=== PATIENT | female | born 1990 | race African-American/Black ===

== ENCOUNTER 2016-08-08 10:45 | Emergency (ER) | payer BC, OTHER ==
[~2016-08-08] VITALS: Ht 172.7 cm; Wt 172.7 kg
[~2016-08-08 10:45] MED LIST: DICL75TA PO; HYDR-3533 PO; ROBA750T PO; TRAM50 PO; ZOFR4TAB3 SL
[2016-08-08 10:48] VITALS: BP 179/81; PULSE 79; RESP 16; TEMP 98.7; O2SAT 99
[2016-08-08] MEDS ORDERED: ONDANSETRON ODT 4 MG TAB PO ONE (11:15)
--- NOTE | 2016-08-08 11:15 | PD ---
HPI Chief Complaint: Chest Pain Time Seen by Provider: 11:05 Travel History International Travel<30 days: No Contact w/Intl Traveler<30days: No Traveled to known affect area: No History of Present Illness HPI 25-year-old female presents for evaluation of chest tightness. Symptoms started 4 days ago. She describes a tightness in the upper part of her chest when she breathes. She denies any pain. She says that the symptoms come and go. There is no obvious aggravating or alleviating factor. She does endorse a slight cough as well as nausea. She has been feeling anxious over the past week as well. Denies any depression. Denies any congestion, fevers or chills, abdominal pain, flank pain, dysuria, calf swelling, recent travel, recent surgery. Denies any oral contraceptive use. She has no significant past medical history. Denies tobacco use. She has no other complaints at this time. PFSH Past Medical History ?: Not LMP: 07/01/2016 Social History Alcohol Use: Yes Tobacco Use: No Substance Use: No Allergies-Medications (Allergen,Severity, Reaction): Coded Allergies: No Known Allergies (Unverified , 08/08/16) Reported Meds & Prescriptions Reported Meds & Active Scripts Active Review of Systems Except as stated in HPI: all other systems reviewed are Neg Physical Exam Narrative GENERAL: Well-developed well-nourished female in no acute distress. Her vital signs have been reviewed. SKIN: Warm and dry. HEAD: Atraumatic. Normocephalic. EYES: Pupils equal and round. No scleral icterus. No injection or drainage. ENT: No nasal bleeding or discharge. Mucous membranes pink and moist. NECK: Trachea midline. No JVD. CARDIOVASCULAR: Regular rate and rhythm. No murmur appreciated. RESPIRATORY: No accessory muscle use. Clear to auscultation. Breath sounds equal bilaterally. No crackles no wheezing or rhonchi GASTROINTESTINAL: Abdomen soft, non-tender, nondistended. Hepatic and splenic margins not palpable. MUSCULOSKELETAL: No obvious deformities. No edema. NEUROLOGICAL: Awake and alert. No obvious cranial nerve deficits. Motor grossly within normal limits. Normal speech. PSYCHIATRIC: Appropriate mood and affect; insight and judgment normal. Data Data Last Documented VS Vital Signs Date Time Temp Pulse Resp B/P Pulse Ox O2 Delivery O2 Flow Rate FiO2 08/08/16 11:42 Room Air 08/08/16 10:48 98.7 79 16 179/81 99 Orders Electrocardiogram (08/08/16 11:09) Basic Metabolic Panel (Bmp) (08/08/16 11:09) Complete Blood Count With Diff (08/08/16 11:09) Magnesium (Mg) (08/08/16 11:09) Chest, Single Ap (08/08/16 11:09) Ed Urine Pregnancytest Poc (08/08/16 11:09) Ondansetron Odt (Zofran Odt) (08/08/16 11:15) Labs Laboratory Tests Test 08/08/16 11:30 White Blood Count 7.6 TH/MM3 Red Blood Count 3.85 MIL/MM3 Hemoglobin 11.1 GM/DL Hematocrit 33.4 % Mean Corpuscular Volume 86.7 FL Mean Corpuscular Hemoglobin 28.7 PG Mean Corpuscular Hemoglobin 33.1 % Concent Red Cell Distribution Width 15.8 % Platelet Count 324 TH/MM3 Mean Platelet Volume 8.7 FL Neutrophils (%) (Auto) 58.0 % Lymphocytes (%) (Auto) 33.1 % Monocytes (%) (Auto) 6.9 % Eosinophils (%) (Auto) 1.3 % Basophils (%) (Auto) 0.7 % Neutrophils # (Auto) 4.4 TH/MM3 Lymphocytes # (Auto) 2.5 TH/MM3 Monocytes # (Auto) 0.5 TH/MM3 Eosinophils # (Auto) 0.1 TH/MM3 Basophils # (Auto) 0.1 TH/MM3 CBC Comment DIFF FINAL Differential Comment Sodium Level 137 MEQ/L Potassium Level 3.6 MEQ/L Chloride Level 105 MEQ/L Carbon Dioxide Level 24.5 MEQ/L Anion Gap 8 MEQ/L Blood Urea Nitrogen 11 MG/DL Creatinine 0.76 MG/DL Estimat Glomerular Filtration 110 ML/MIN Rate Random Glucose 127 MG/DL Calcium Level 8.3 MG/DL Magnesium Level 1.6 MG/DL [facility] Medical Decision Making Medical Screen Exam Complete: Yes Emergency Medical Condition: Yes Medical Record Reviewed: Yes Interpretation(s) EKG reveals sinus rhythm Chest x-ray within normal limits CBC hemoglobin 11.1 BMP potassium 8.3 otherwise unremarkable Magnesium unremarkable ED urine negative Differential Diagnosis Anxiety, reactive airway disease, bronchitis, pneumonia, spontaneous pneumothorax, pulmonary embolism, aortic dissection, pericarditis, myocarditis, acute coronary syndrome Narrative Course 25-year-old female presents with 4 days of dyspnea and a tightness when she breathes. Symptoms are intermittent. She denies any pain. She has had some anxiety, slight cough and nausea as well. Physical examination and history are reassuring. I don't suspect cardiac etiology for her symptoms. Pulmonary embolism was considered in the differential however the patient is PERC negative. I suspect that there may be an anxiety component to her symptoms. Plan is for basic lab work, EKG, chest x-ray. The patient will be given Zofran. The patient's lab work imaging and EKG studies are reassuring. Her hemoglobin is slightly low at 11.1. She reports a history of anemia for which she used to take iron supplementation however she has not taken it in years. The patient will be given a 30 day supply of iron supplementation and advised to follow up closely with primary care physician. She is stable for discharge. Procedures EKG Prior to Arrival: Yes Diagnosis Primary Impression: Anxiety Additional Impression: Anemia Qualified Code: D64.9 - Anemia, unspecified type Additional Instructions: Follow-up closely with primary care physician. Return for new or worsening symptoms. Med/Other Pt SpecificInfo: Prescription(s) given Scripts Ferrous Sulfate 325 Mg [id number] Mg PO DAILY #30 TAB Ref 0 Prov:Checo Forrest MD 08/08/16 Disposition: 01 DISCHARGE HOME Condition: Stable Doyle Arcos Aug 08, 2016 11:15
--- NOTE | 2016-08-08 11:43 | RADRPT ---
EXAM DATE/TIME: 08/08/2016 11:12 [facility] COMPARISON: No previous studies available for comparison. INDICATIONS : Chest Pain for 1 week. Shortness of Breath. MEDICAL HISTORY : None. SURGICAL HISTORY : None. ENCOUNTER: Initial ACUITY: 1 week PAIN SCORE: 0/10 LOCATION: Bilateral chest FINDINGS: A single view of the chest demonstrates the lungs to be symmetrically aerated without evidence of mas s, infiltrate or effusion. The cardiomediastinal contours are unremarkable. Osseous structures are intact. CONCLUSION: No acute disease. Andrei Dupont MD on August 08, 2016 at 11:41 Board Certified Radiologist. This report was verified electronically.
[2016-08-08 11:55] LABS: AUTOMATED NEUTROPHIL # 4.4 TH/MM3 (1.8-7.7); BASOPHIL # 0.1 TH/MM3 (0-0.2); BASOPHIL % 0.7 % (0.0-2.0); EOSINOPHIL # 0.1 TH/MM3 (0-0.4); EOSINOPHIL % 1.3 % (0.0-4.0); HEMATOCRIT 33.4 % (35.0-46.0); HEMO FLAGS DIFF FINAL; LYMPH % 33.1 % (9.0-44.0); LYMPHOCYTE # 2.5 TH/MM3 (1.0-4.8); MEAN CELL VOLUME 86.7 FL (80.0-100.0); MEAN CORPUSCULAR HEMOGLOBIN 28.7 PG (27.0-34.0); MEAN CORPUSCULAR HGB CONC 33.1 % (32.0-36.0); MONO % 6.9 % (0.0-8.0); PLATELET COUNT 324 TH/MM3 (150-450); RED BLOOD COUNT 3.85 MIL/MM3 (4.00-5.30); RED CELL DISTRIBUTION WIDTH 15.8 % (11.6-17.2); WHITE BLOOD COUNT 7.6 TH/MM3 (4.0-11.0)
[2016-08-08 12:08] LABS: BICARBONATE 24.5 MEQ/L (21.0-32.0); MAGNESIUM 1.6 MG/DL (1.5-2.5); POTASSIUM 3.6 MEQ/L (3.5-5.1)
[2016-08-08] MEDS ORDERED: FERR325T PO (12:14)
--- NOTE | 2016-08-09 16:21 | EKG ---
Date Performed: 08/08/2016 Time Performed: 11:26:37 PTAGE: 25 years EKG: Sinus rhythm NORMAL ECG NO PREVIOUS TRACING DOCTOR: Jone Platt Interpretating Date/Time 08/09/2016 16:18:57
== END 2016-08-08 12:45 | disposition home or self-care (01) ==
LOC: NETRI 10:45
DX: F41.9 Anxiety disorder, unspecified (principal); D64.9 Anemia, unspecified; R05 Cough; R11.0 Nausea
CPT/HCPCS: 71010; 80048; 83735; 84703; 85025; 93005